=== PATIENT | male | born 1950 | race Caucasian/White ===

== ENCOUNTER → 2017-01-15 | Outpatient (CLI) | payer OTHER ==
[~2017-01-15] MED LIST: AMBIEN 10MG10 MG PO; AMLODIPINE5 MG PO; ASPIRIN 32325 MG/TAB PO; CELEBREX 200MG200 MG PO; DARVOCET N; EPA FISH OIL1000 MG PO; FERROUS SU325 MG/TAB PO; FOLIC ACID; HYGROTON25 MG PO; KLOR-CON M2020 MEQ PO; NORVASC 5MG5 MG/TAB PO; PRILOTC PO; SYNTHROID0.137 MG PO; TAPAZOLE; THALITONE PO; TOPROL XL100 MG PO; TRAMADOL; VITAMIN C250250 MG PO; VITAMIN C500 MG PO
== END ==
LOC: COL.RAD 14:00
DX: M50.30 Other cervical disc degeneration, unspecified cervical region (principal); R59.0 Localized enlarged lymph nodes

== ENCOUNTER → 2018-05-27 | Outpatient (CLI) | payer MEDICARE, BC | LOC: COL.VAS 12:30 | DX: I48.91 Unspecified atrial fibrillation (principal) ==

== ENCOUNTER 2018-06-21 20:57 | Emergency (ER) | payer MEDICARE, BC ==
[~2018-06-21] VITALS: Ht 167.6 cm; Wt 104.5 kg
[2018-06-21 20:59] VITALS: BP 152/82; TEMP 98.5
[2018-06-21 22:51] LABS: INR 1.3 (0.8-3.0); PROTHROMBIN TIME 14.9 SECONDS (9.7-12.8)
[2018-06-21 22:56] LABS: MEAN CELL VOLUME 90 fl (80.0-100.0); MEAN CORPUSCULAR HEMOGLOBIN 31 pg (27.0-31.0); MEAN CORPUSCULAR HGB CONC 35 g/dl (33.0-37.0); MEAN PLATELET VOLUME 10.5 fl (7.4-10.4); PLATELET COUNT 145 K/mm3 (130-400); RED BLOOD COUNT 4.47 M/mm3 (4.20-5.60); REDCELL DISTRIBUTION WIDTH-CV 13.2 % (11.5-14.5)
[2018-06-21 22:57] LABS: CALCIUM 9.1 mg/dL (8.4-10.2); CREATININE, serum 0.72 mg/dL (0.66-1.25); POTASSIUM 3.7 mmol/L (3.4-5.0)
[2018-06-21 23:18] LABS: COLLECTION METHOD CLEAN CATCH
[2018-06-21 23:25] LABS: MUCOUS Present /lpf; PH 5 (5-8); SQUAMOUS EPITHELIAL None Seen /hpf; URINE APPEARANCE Clear; URINE BACTERIA None Seen /hpf; URINE BILIRUBIN Negative (NEGATIVE); URINE BLOOD Negative (NEGATIVE); URINE COLOR Yellow; URINE GLUCOSE Negative (NEGATIVE); URINE KETONE Negative (NEGATIVE); URINE LEUKOCYTE ESTERASE Negative (NEGATIVE); URINE NITRATE Negative (NEGATIVE); URINE PROTEIN(semi-quant) Negative (NEGATIVE); URINE RBC 0-2 /hpf
[2018-06-21 23:37] LABS: BAND 6 % (0-10); EOSINOPHIL 3 % (0-4); LYMPHOCYTE 65 % (20.0-51.0); NEUTROPHILS 24 % (42.0-75.2); PLATELET ESTIMATE NORMAL (NORMAL); TEAR DROP CELLS 1+
[2018-06-21 23:54] VITALS: PULSE 70
== END 2018-06-21 23:54 | disposition home or self-care (01) ==
LOC: COL.ER 20:57
PROVIDERS: Emergency Medicine
DX: R10.30 Lower abdominal pain, unspecified (principal); Z79.82 Long term (current) use of aspirin

== ENCOUNTER 2018-06-24 14:57 | Inpatient (IN) | payer MEDICARE, BC ==
[~2018-06-24] VITALS: Ht 167.6 cm; Wt 104.0 kg
[~2018-06-24 14:57] MED LIST changes: +HYGROTON 2525 MG/TAB PO; -HYGROTON25 MG PO
[2018-07-07] MEDS ORDERED: LIPITOR 10MG10 MG PO (09:40)
[2018-07-07] MEDS ORDERED: GLUCOPHAGE XR500 M1 PO (09:41)
[2018-07-07] MEDS ORDERED: LYRICA200 MG PO (09:44)
[2018-07-07] MEDS ORDERED: MASON NATURAL2000 IU PO (09:50)
[2018-07-07] MEDS ORDERED: SYNTHROID0.125 MG/T PO (09:51)
[2018-07-07] MEDS ORDERED: ASPIRIN 81M81 MG/TA2 PO (09:52)
[2018-07-07] MEDS ORDERED: FOLIC ACID0.8 MG PO (09:52)
[2018-07-07] MEDS ORDERED: VITAMIN C500 MG PO (09:53)
[2018-07-07] MEDS ORDERED: FERROUS SU325 MG/TAB PO (09:53)
[2018-07-07] MEDS ORDERED: B-121000 MCG PO (09:54)
[2018-07-07] MEDS ORDERED: ELIQUIS 5MG PO (09:55)
[2018-07-07] MEDS ORDERED: TOPROL XL 25MG25 MG PO (09:55)
[2018-07-07] MEDS ORDERED: FLOMAX 0.40.4 MG/CAP PO (09:56)
[2018-07-07] MEDS ORDERED: TAMBOCOR 1100 MG/TAB PO (11:50)
[2018-08-05] VITALS (12 sets, daily range): BP systolic 102–134; BP diastolic 57–78; PULSE 58–96; TEMP 97.2–98
[2018-08-05] MEDS ORDERED: ALBUTEROL0.83 MG/ML IH (01:31)
--- NOTE | 2018-08-05 06:51 | NUR ---
Patient admitted to the unit at 0515 this morning. 20G started in right forearm after 2 unsuccessful attempts in left extremity. Pulses and correct joint marked. Site cleansed. Consent signed and on the chart.
--- NOTE | 2018-08-05 09:49 | NUR ---
Initial visit attempt; Patient in surgery, [facility] spoke with his , letting her know of the availability of spiritual care and Chapel's here at [facility].
--- NOTE | 2018-08-05 10:32 | NUR ---
PT TO ROOM 327 PER BED WITH REPORT FROM TAMEKA MAESHIP'S CAPTAIN. PT IS DROWSEY AND AROUSABLE. LUNGS CLEAR BOWELS SOUNDS HYPO. PEDAL PULSES PALPABLE, DRESSING TO RIGHT KNEE CDI WITH AQUACEL OVER INCISION. POLAR KAREN ON SURGICAL SITE RUNNING WITH ICE H20 RUNNING, PT DENIES PAIN. HAS SENSATION TO TOES PARTIALLLY. AT BEDSIDE.
--- NOTE | 2018-08-05 10:54 | NUR ---
PT C/O BURNING TO RIGHT KNEE PO NORCO STARTED PER ORDERS. PT C/O MILD ITCHING. REPOSITIONED FOR COMFORT.
[2018-08-05 14:30] LABS: BASO # 0.1 (0.0-0.2); BASO % 0.3 % (0.0-2.0); EOS # 0.2 (0.0-0.7); GRAN # 10.1 (1.4-6.5); GRAN % 49.8 % (42.2-75.2); HEMATOCRIT 43.6 % (42.0-52.0); HEMOGLOBIN 15.2 g/dl (13.5-18.0); LYMPH # 8.7 (1.2-3.4); LYMPH % 42.8 % (20.0-51.0); MEAN CELL VOLUME 91 fl (80.0-100.0); MEAN CORPUSCULAR HEMOGLOBIN 32 pg (27.0-31.0); MEAN CORPUSCULAR HGB CONC 35 g/dl (33.0-37.0); MEAN PLATELET VOLUME 11.9 fl (7.4-10.4); MONO # 1.1 (0.1-0.6); MONO % 5.4 % (1.7-9.3); PLATELET COUNT 129 K/mm3 (130-400); RED BLOOD COUNT 4.78 M/mm3 (4.20-5.60); REDCELL DISTRIBUTION WIDTH-CV 13.2 % (11.5-14.5)
--- NOTE | 2018-08-05 14:49 | NUR ---
SW met with patient to discuss discharge planning. Patient lives independently at home with his . Patient's PCP is Dr Montemayor and [facility]. Patient has a four wheeled walker for ambulation but no other DME is reported and patient does not use any home health services. Patient plans to receive outpatient PT at [facility] when he is discharged. PAMELA does not anticipate any discharge needs.
[2018-08-05 14:56] LABS: CALCIUM 8.5 mg/dL (8.4-10.2); CREATININE, serum 0.67 (0.66-1.25)
--- NOTE | 2018-08-05 20:00 | NUR ---
REPORT RECEIVED. ASSUMED CARE FOR ROAD MANAGER. ASSESSMENT COMPLETE. VS STABLE. DENIES NEEDS FOR PAIN MEDICATIONS RATING 3/10. RIGHT KNEE ELEVATED WITH CRYOCUFF. AQUACELL DRESSING C/D/I. DENIES NEEDS AT THIS TIME. CALL LIGHT WITHIN REACH. BED IN LOW POSITION WHEELS LCOKED.
[2018-08-06] VITALS (8 sets, daily range): BP systolic 113–145; BP diastolic 45–87; PULSE 64–86; TEMP 97.5–99.2
[2018-08-06] MEDS ORDERED: NORCO 325 MG-7.1 TAB PO (07:44)
[2018-08-06] MEDS ORDERED: ROXICODONE 55 MG/TAB PO (07:44)
[2018-08-06 08:51] LABS: HEMOGLOBIN 13.9 g/dl (13.5-18.0); MEAN CELL VOLUME 93 fl (80.0-100.0); MEAN CORPUSCULAR HEMOGLOBIN 32 pg (27.0-31.0); MEAN CORPUSCULAR HGB CONC 34 g/dl (33.0-37.0); MEAN PLATELET VOLUME 11.3 fl (7.4-10.4); PLATELET COUNT 139 K/mm3 (130-400); RED BLOOD COUNT 4.41 M/mm3 (4.20-5.60); REDCELL DISTRIBUTION WIDTH-CV 13.3 % (11.5-14.5)
[2018-08-06 09:22] LABS: BAND 3 % (0-10); BASOPHIL 1 % (0-2); EOSINOPHIL 3 % (0-4); LYMPHOCYTE 40 % (20.0-51.0); NEUTROPHILS 46 % (42.0-75.2); PLATELET ESTIMATE NORMAL (NORMAL)
--- NOTE | 2018-08-06 20:30 | NUR ---
Patient report received from CARMELITA Paredes at bedside during shift report. Upon assessment at this time patient reports his pain at 8/10 to right knee. PRN [facility] given at this time. Denies N/V. Assisted patient in repositioning in bed. Educated patient on placement of pillows under leg and the importance of not placing pillows under the knee. Cryocuff in place, refilled chamber with ice. No other needs reported/observed.
[2018-08-07 00:33] VITALS: BP 148/66; PULSE 75; TEMP 98.2
[2018-08-07 03:42] VITALS: BP 153/77; PULSE 79; TEMP 98.2
--- NOTE | 2018-08-07 06:35 | NUR ---
awake resting in bed, bedside shift report received from CARMELITA Sheppard
--- NOTE | 2018-08-07 07:03 | NUR ---
Patient report given to CARMELITA Gonzalez at bedside. Patient resting comfortably in bed, no needs reported.
--- NOTE | 2018-08-07 07:04 | NUR ---
Patient report given to CARMELITA Ramirez at bedside. Patient went down for KUB this am, back to room. No needs reported.
[2018-08-07 07:25] VITALS: BP 126/69; PULSE 79; TEMP 99
--- NOTE | 2018-08-07 07:50 | NUR ---
had breakfast and tolerated well, full assessment completed, see interventions for further info, denies needs
--- NOTE | 2018-08-07 09:35 | NUR ---
ambulated out to mayo with physical therapy for group exercises
--- NOTE | 2018-08-07 10:02 | NUR ---
ambulated back to room after therapy and resting in chair
--- NOTE | 2018-08-07 10:32 | NUR ---
occupational therapy in to assit patient with taking a shower
--- NOTE | 2018-08-07 11:00 | NUR ---
out of shower and in recliner getting dressed, c/o some nausea but INT discontinued, will try 7-up and if nausea continues will notify the Dr. for po prn nausea med, patient verbalizes understanding of this, aquacel dressing to right knee removed, incision with syd intact, cleaned with betadine swabs and new aquacel placed
--- NOTE | 2018-08-07 12:00 | NUR ---
in chair and appears to be sleeping, lights off, eyes closed, resp quiet and easy
[2018-08-07 12:03] VITALS: BP 152/81; PULSE 83; TEMP 98.2
--- NOTE | 2018-08-07 12:30 | NUR ---
entered room and patient up to bathroom independently but had been incontinent on the way to bathroom, WARP SCOURING VAT TENDER in and assisting patient with cleaning up
--- NOTE | 2018-08-07 12:41 | NUR ---
again having nausea with some dry heaves, Dr Jaramillo notified
--- NOTE | 2018-08-07 13:00 | NUR ---
assisted out of bathroom and into recliner, medicated with zofran 4mg ODT and hydrocodone 7.5mg 2 tabs for c/os pain 09/07, will wait until after therapy and will consider eating lunch then
--- NOTE | 2018-08-07 13:16 | NUR ---
ambulating in mayo with physical therapy
--- NOTE | 2018-08-07 13:20 | NUR ---
called to room and he had a small amount liquid emesis after ambulating in the mayo, after finishes exercises with therapist encouraged to rest in recliner
--- NOTE | 2018-08-07 14:00 | NUR ---
in recliner and appears to doze and go to sleep quickly, awakens easily, explained to that with narcotics and out of the routine this is normal, she has ordered his lunch
--- NOTE | 2018-08-07 14:30 | NUR ---
remains very sleepy and stomach is still mildly upset but he wants to go home to sleep, is in agreement with this, discharge instructions given to patient and his , verbalizes understanding
--- NOTE | 2018-08-07 14:48 | NUR ---
discharged per WC
--- NOTE | 2018-08-07 14:50 | NUR ---
DISCHARGED PER wc
== END 2018-08-07 14:50 | disposition home or self-care (01) | DRG 470 ==
LOC: JCC 07-28 07:30
PROVIDERS: Hospitalist; ADMIT Orthopaedic Surgery
PROC: 0SRC0J9 Replacement of Right Knee Joint with Synthetic Substitute, Cemented, Open Approach (ICD-10-PCS; principal; 2018-08-05 07:30)
DX: M17.11 Unilateral primary osteoarthritis, right knee (principal); C91.10 Chronic lymphocytic leukemia of B-cell type not having achieved remission; I48.91 Unspecified atrial fibrillation; E11.9 Type 2 diabetes mellitus without complications; I10 Essential (primary) hypertension; E03.9 Hypothyroidism, unspecified; Z79.01 Long term (current) use of anticoagulants; E78.5 Hyperlipidemia, unspecified; K21.9 Gastro-esophageal reflux disease without esophagitis; E66.01 Morbid (severe) obesity due to excess calories; Z68.39 Body mass index [BMI] 39.0-39.9, adult
CPT/HCPCS: 99222; 99231-AI; 99232-AI; A4314; A9284; C1776; J0690; J2250; J2405; J2704; J3010; J7030; J7042; J7120

== ENCOUNTER → 2018-11-10 | Outpatient (CLI) | payer MEDICARE, BC ==
[~2018-11-10] MED LIST changes: +ALBUTEROL0.83 MG/ML IH; +ASPIRIN 81M81 MG/TA2 PO; +B-121000 MCG PO; +ELIQUIS 5MG PO; +FLOMAX 0.40.4 MG/CAP PO; +FOLIC ACID0.8 MG PO; +GLUCOPHAGE XR500 M1 PO; +LIPITOR 10MG10 MG PO; +LYRICA200 MG PO; +MASON NATURAL2000 IU PO; +NORCO 325 MG-7.1 TAB PO; +ROXICODONE 55 MG/TAB PO; +SYNTHROID0.125 MG/T PO; +TAMBOCOR 1100 MG/TAB PO; +TOPROL XL 25MG25 MG PO
== END ==
LOC: COL.VAS 08:39
DX: Z13.89 Encounter for screening for other disorder (principal); R60.0 Localized edema

== ENCOUNTER → 2019-01-07 | Outpatient (CLI) | payer MEDICARE, BC | LOC: COL.RAD 11:02 | DX: M47.812 Spondylosis without myelopathy or radiculopathy, cervical region (principal); Z98.890 Other specified postprocedural states ==

== ENCOUNTER 2020-06-16 17:06 | Inpatient (IN) | payer MEDICARE, BC ==
[~2020-06-16] VITALS: Ht 170.2 cm; Wt 104.1 kg
[2020-06-16] MEDS ORDERED: ZESTRIL 5MG5 MG PO (17:30)
[2020-06-16] MEDS ORDERED: COUMADIN 1MG1 MG/TAB PO (17:30)
[2020-06-16 18:03] LABS: HEMATOCRIT 43.8 % (42.0-52.0); HEMOGLOBIN 14.8 g/dl (13.5-18.0); MEAN CELL VOLUME 91 fl (80.0-100.0); MEAN CORPUSCULAR HEMOGLOBIN 31 pg (27.0-31.0); MEAN CORPUSCULAR HGB CONC 34 g/dl (33.0-37.0); MEAN PLATELET VOLUME 13.1 fl (7.4-10.4); PLATELET COUNT 95 K/mm3 (130-400); RED BLOOD COUNT 4.84 M/mm3 (4.20-5.60); REDCELL DISTRIBUTION WIDTH-CV 13.4 % (11.5-14.5)
[2020-06-16 18:08] LABS: ALBUMIN 4.2 gm/dL (3.5-5.0); BILIRUBIN,TOTAL 0.5 mg/dL (0.0-1.0); CREATININE, serum 0.84 (0.66-1.25); INR 2.8 (0.8-3.0); POTASSIUM 4.3 mmol/L (3.4-5.0); TOTAL PROTEIN 7.5 gm/dL (6.4-8.2)
[2020-06-16 18:29] LABS: COLLECTION METHOD CLEAN CATCH
[2020-06-16 18:34] LABS: BAND 2 % (0-10); EOSINOPHIL 4 % (0-4); LYMPHOCYTE 49 % (20.0-51.0); NEUTROPHILS 40 % (42.0-75.2); PLATELET ESTIMATE DECREASED (NORMAL)
[2020-06-16 18:39] LABS: PH 5 (5-8); SQUAMOUS EPITHELIAL None Seen /hpf; URINE APPEARANCE Clear; URINE BACTERIA None Seen /hpf; URINE BILIRUBIN Negative (NEGATIVE); URINE BLOOD Negative (NEGATIVE); URINE COLOR Yellow; URINE GLUCOSE Negative (NEGATIVE); URINE KETONE Negative (NEGATIVE); URINE LEUKOCYTE ESTERASE Negative (NEGATIVE); URINE NITRATE Negative (NEGATIVE); URINE PROTEIN(semi-quant) Negative (NEGATIVE); URINE RBC 0-2 /hpf; URINE UROBILINOGEN Negative (NEGATIVE)
--- NOTE | 2020-06-16 23:45 | NUR ---
ARRIVES PER CART FROM ED.
--- NOTE | 2020-06-16 23:50 | NUR ---
PT REPORTS BLOODY STOOL, NO CLOTS. CONNECTED TO IVF, RT AC SITE, INFUSING WITHOUT PROBLEM. DENIES PAIN, NO N/V. ORIENTED TO BED AND CONTROLS. ADMISSION QUESTIONS COMPLETED.
[2020-06-17] VITALS: BP 165/69; PULSE 77; TEMP 97.4
[2020-06-17] MEDS ORDERED: AMBIEN 5MG TABLE5 MG PO (00:15)
[2020-06-17 04:34] VITALS: BP 135/65; PULSE 54; TEMP 98.1
--- NOTE | 2020-06-17 05:23 | NUR ---
HAS HAD NO STOOLS SINCE BEFORE MIDNIGHT. VOIDS PER URINAL. NO COMPLAINTS OFFERED.
[2020-06-17 05:58] LABS: HEMATOCRIT 38.9 % (42.0-52.0); MEAN CELL VOLUME 92 fl (80.0-100.0); MEAN CORPUSCULAR HEMOGLOBIN 31 pg (27.0-31.0); MEAN CORPUSCULAR HGB CONC 33 g/dl (33.0-37.0); MEAN PLATELET VOLUME 11.7 fl (7.4-10.4); PLATELET COUNT 93 K/mm3 (130-400); RED BLOOD COUNT 4.23 M/mm3 (4.20-5.60); REDCELL DISTRIBUTION WIDTH-CV 13.7 % (11.5-14.5)
[2020-06-17 06:06] LABS: ALBUMIN 3.3 gm/dL (3.5-5.0); CALCIUM 8.1 mg/dL (8.4-10.2); CREATININE, serum 0.72 (0.66-1.25); POTASSIUM 3.9 mmol/L (3.4-5.0); TOTAL PROTEIN 5.9 gm/dL (6.4-8.2)
[2020-06-17 06:50] LABS: BAND 4 % (0-10); EOSINOPHIL 1 % (0-4); LYMPHOCYTE 61 % (20.0-51.0); NEUTROPHILS 30 % (42.0-75.2)
[2020-06-17 06:51] LABS: PLATELET ESTIMATE DECREASED (NORMAL)
[2020-06-17 06:53] LABS: PROTHROMBIN TIME 22.3 SECONDS (9.7-12.8)
--- NOTE | 2020-06-17 07:07 | NUR ---
Pt doing well, assisted pt to the restroom. No other needs, will continue to monitor
[2020-06-17 07:30] VITALS: BP 128/73; PULSE 65; TEMP 98
--- NOTE | 2020-06-17 10:11 | NUR ---
Pt doing well at this time. Dr Madsen has been in to see patient, new orders wrote. Pt is aware of the procedure for tomorrow. Informed him that he will start the bowel prep closer to this evening. He stated that he is aware of how it works as he has had colonoscopies in the past. Pt is steady on his feet, has no complaints of pain. Will continue to monitor
[2020-06-17 12:09] VITALS: BP 122/68; PULSE 62; TEMP 98.1
--- NOTE | 2020-06-17 15:00 | NUR ---
Pt continues to do well, no complaints or needs. He has not had another bowel movement until this am. Call light within reach, will continue to monitor.
--- NOTE | 2020-06-17 15:36 | NUR ---
Plan is retrun home with Kathia as care support . Patient reports that he has a son Cornelius but unsure of cell number. Patient denies having any DME use, Skilled services, or need for HHS. Patient obtains medications at [facility] and PCP is Dr. Perez and [facility] Dr. Nazario. Will have family to transport home. Does not ahve a POA and will discuss with . No additional concerns at this time. Educated on services. NF/
[2020-06-17 17:42] VITALS: BP 141/77; PULSE 63; TEMP 97.8
--- NOTE | 2020-06-17 17:54 | NUR ---
Pt has started his bowel prep for tomorrow colonoscopy. He still has not had a bowel movement since earlier this am. No complaints, call light within reach, will continue to monitor
[2020-06-17 18:56] VITALS: BP 154/85; PULSE 53; TEMP 97.7
--- NOTE | 2020-06-17 19:16 | NUR ---
Awake, alert, oriented x 4, clearly communicates, denies pain, currently tolerating clear liquid diet, doing bowel prep, telemetry in use Afib 60s, no s/s of hypo/hyper glycemia, holding coumadin inr 2.0, updated on plan of care- verbalized understanding.
[2020-06-18] VITALS (9 sets, daily range): BP systolic 124–161; BP diastolic 68–81; PULSE 57–73; TEMP 97.7–98.2
[2020-06-18 06:32] LABS: CALCIUM 8.1 mg/dL (8.4-10.2); CREATININE, serum 0.71 (0.66-1.25); MAGNESIUM 1.9 mg/dL (1.6-2.3); POTASSIUM 3.7 mmol/L (3.4-5.0)
--- NOTE | 2020-06-18 06:45 | NUR ---
Lying in bed with eyes open. Alert and oriented x4. Denies pain at this time. Patient did bowel prep last night for EGD/Colonoscopy today and he says that his stools are clearing up. Explain to the patient that I was informed they have him on the schedule for this procedure around 1000 today. Patient verbalizes understanding and denies additional needs at this time.
[2020-06-18 07:19] LABS: INR 1.3 (0.8-3.0); PROTHROMBIN TIME 14.5 SECONDS (9.7-12.8)
[2020-06-18 08:32] LABS: HEMATOCRIT 38.3 % (42.0-52.0); HEMOGLOBIN 12.8 g/dl (13.5-18.0); MEAN CELL VOLUME 93 fl (80.0-100.0); MEAN CORPUSCULAR HEMOGLOBIN 31 pg (27.0-31.0); MEAN CORPUSCULAR HGB CONC 33 g/dl (33.0-37.0); RED BLOOD COUNT 4.13 M/mm3 (4.20-5.60); REDCELL DISTRIBUTION WIDTH-CV 13.7 % (11.5-14.5)
[2020-06-18 08:37] LABS: MEAN PLATELET VOLUME 11.9 fl (7.4-10.4)
[2020-06-18 08:46] LABS: PLATELET COUNT 147 K/mm3 (130-400)
[2020-06-18 08:55] LABS: BAND 2 % (0-10); EOSINOPHIL 5 % (0-4); LYMPHOCYTE 61 % (20.0-51.0); NEUTROPHILS 27 % (42.0-75.2); PLATELET ESTIMATE NORMAL (NORMAL)
--- NOTE | 2020-06-18 09:49 | NUR ---
Graciela here to take patient via bed to procedure.
--- NOTE | 2020-06-18 10:49 | NUR ---
Patient back to room from PACU via bed. Alert and oriented x4. Denies pain. in room with the patient. Will provide water. Denies additional needs.
[2020-06-18] MEDS ORDERED: TOPROL XL 50MG50 MG PO (12:01)
--- NOTE | 2020-06-18 12:36 | NUR ---
Patient able to eat 100% of general lunch. Denies pain or nausea. Up to bathroom at this time. Voids without difficulty. Patient is ready to go home at this time, is here as well. Explain we will get his paperwork together.
--- NOTE | 2020-06-18 12:51 | NUR ---
Review all discharge instructions with the patient and his . Verbalize understanding and denies questions. Signs discharge paperwork. Assisted out to POV via wheelchair with all belongings.
--- NOTE | 2020-06-18 13:34 | NUR ---
Patient will discharge home today with Kathia. No new needs at this time.
== END 2020-06-18 12:51 | disposition home or self-care (01) | DRG 378 ==
LOC: COL.ER 17:06 → SURG 20:51
PROVIDERS: Internal Medicine; Nurse Practitioner; Physician Assistant; Student in an Organized Health Care Education/Training Program; Surgery; ADMIT Student in an Organized Health Care Education/Training Program
PROC: 0DJD8ZZ Inspection of Lower Intestinal Tract, Via Natural or Artificial Opening Endoscopic (ICD-10-PCS; principal; 2020-06-18 10:00)
PROC: 0DJ08ZZ Inspection of Upper Intestinal Tract, Via Natural or Artificial Opening Endoscopic (ICD-10-PCS; 2020-06-18 10:00)
DX: K92.2 Gastrointestinal hemorrhage, unspecified (principal); C91.10 Chronic lymphocytic leukemia of B-cell type not having achieved remission; E78.5 Hyperlipidemia, unspecified; M19.90 Unspecified osteoarthritis, unspecified site; E11.9 Type 2 diabetes mellitus without complications; I48.91 Unspecified atrial fibrillation; Z96.642 Presence of left artificial hip joint; D69.6 Thrombocytopenia, unspecified; K44.9 Diaphragmatic hernia without obstruction or gangrene; K21.9 Gastro-esophageal reflux disease without esophagitis; E05.00 Thyrotoxicosis with diffuse goiter without thyrotoxic crisis or storm; Z79.02 Long term (current) use of antithrombotics/antiplatelets; Z79.82 Long term (current) use of aspirin
CPT/HCPCS: 99223-AI; 99232-AI; 99239; C9113; J2250; J2704; J3430; J7030; Q9967

== ENCOUNTER → 2021-11-28 | Outpatient (CLI) | payer MEDICARE ==
[~2021-11-28] MED LIST changes: +AMBIEN 5MG TABLE5 MG PO; +COUMADIN 1MG1 MG/TAB PO; +TOPROL XL 50MG50 MG PO; +ZESTRIL 5MG5 MG PO
== END ==
LOC: COL.RAD 10:36
DX: C91.10 Chronic lymphocytic leukemia of B-cell type not having achieved remission (principal); K44.9 Diaphragmatic hernia without obstruction or gangrene
CPT/HCPCS: Q9967

== ENCOUNTER 2022-05-22 15:39 | Inpatient (IN) | payer MEDICARE ==
[~2022-05-22] VITALS: Ht 170.2 cm; Wt 92.1 kg
[2022-05-22 16:48] LABS: ALBUMIN 4.2 gm/dL (3.4-4.8); BILIRUBIN,TOTAL 9.2 mg/dL (0.2-1.2); CALCIUM 9.9 mg/dL (8.4-10.2); CREATININE, serum 0.98 mg/dL (0.72-1.25); POTASSIUM 3.8 mmol/L (3.5-4.5); TOTAL PROTEIN 7.6 gm/dL (6.2-8.1)
[2022-05-22 17:09] LABS: HEMATOCRIT 43.8 % (42.0-52.0); MEAN CELL VOLUME 92 fl (80.0-100.0); MEAN CORPUSCULAR HEMOGLOBIN 32 pg (27-31); MEAN CORPUSCULAR HGB CONC 34 g/dl (33.0-37.0); MEAN PLATELET VOLUME 11.5 fl (7.4-10.4); RED BLOOD COUNT 4.75 M/mm3 (4.20-5.60); REDCELL DISTRIBUTION WIDTH-CV 13.4 % (11.5-14.5)
[2022-05-22 17:13] LABS: PLATELET COUNT 153 K/mm3 (130-400)
[2022-05-22 17:31] LABS: BAND 2 % (0-10); LYMPHOCYTE 48 % (20.0-51.0); NEUTROPHILS 46 % (42.0-75.2); PLATELET ESTIMATE NORMAL (NORMAL)
[2022-05-22 17:32] LABS: INR 1.3 (0.8-3.0); PROTHROMBIN TIME 14.5 SECONDS (9.7-12.8)
[2022-05-22 19:01] LABS: COLLECTION METHOD CLEAN CATCH
[2022-05-22 19:05] LABS: PH 5.5 (5.0-8.5); URINE APPEARANCE Clear (CLEAR/HAZY); URINE BLOOD Negative (NEGATIVE); URINE COLOR OTHER (YELLOW); URINE GLUCOSE Negative (NEGATIVE); URINE KETONE TRACE (NEGATIVE); URINE NITRATE Negative (NEGATIVE); URINE PROTEIN(semi-quant) 1+ (NEGATIVE)
[2022-05-22 19:07] LABS: SQUAMOUS EPITHELIAL 0-2 /hpf (0-10); URINE BACTERIA None Seen /hpf (NONE SEEN); URINE RBC 0-2 /hpf (0-2)
[2022-05-22] MEDS ORDERED: TOPROL XL 25MG25 MG PO (19:23)
[2022-05-22] MEDS ORDERED: ELIQUIS 5MG PO (19:24)
[2022-05-22] MEDS ORDERED: SYNTHROID0.112 MG/T PO (19:25)
[2022-05-22 19:51] VITALS: BP 145/72; PULSE 74; TEMP 98.5
[2022-05-22 23:58] VITALS: BP 153/89; PULSE 73; TEMP 98.7
[2022-05-23 03:49] VITALS: BP 139/69; PULSE 71; TEMP 98.5
[2022-05-23 06:58] LABS: HEMATOCRIT 40.3 % (42.0-52.0); MEAN CELL VOLUME 92 fl (80.0-100.0); MEAN CORPUSCULAR HEMOGLOBIN 32 pg (27-31); MEAN CORPUSCULAR HGB CONC 35 g/dl (33.0-37.0); REDCELL DISTRIBUTION WIDTH-CV 13.4 % (11.5-14.5)
[2022-05-23 07:17] LABS: ALBUMIN 3.3 gm/dL (3.4-4.8); BILIRUBIN,TOTAL 7.9 mg/dL (0.2-1.2); CALCIUM 8.9 mg/dL (8.4-10.2); CREATININE, serum 0.78 mg/dL (0.72-1.25); POTASSIUM 3.4 mmol/L (3.5-4.5); TOTAL PROTEIN 6.1 gm/dL (6.2-8.1)
[2022-05-23 07:33] LABS: BILIRUBIN,DIRECT 4.6 mg/dL (0.0-0.5)
[2022-05-23 08:05] LABS: PLATELET COUNT 107 K/mm3 (130-400)
[2022-05-23 08:06] VITALS: BP 155/84; PULSE 67; TEMP 99.2
--- NOTE | 2022-05-23 08:08 | NUR ---
Critical lab on WBC received and notified to Provider, Dr. Fang.
[2022-05-23 08:23] LABS: BAND 5 % (0-10); NEUTROPHILS 65 % (42.0-75.2)
[2022-05-23 08:29] LABS: LYMPHOCYTE 23 % (20.0-51.0); PLATELET ESTIMATE DECREASED (NORMAL)
[2022-05-23 11:13] VITALS: BP 155/67; PULSE 73; TEMP 97.7
--- NOTE | 2022-05-23 12:13 | NUR ---
Initial visit; introduced herself to patient who was friendly and thanked for stopping by. He and spoke of his former Physician who was a long time acquaintance of 's and is now retired. mentioned he would keep David in her prayers which pleased him.
--- NOTE | 2022-05-23 13:28 | NUR ---
Returns Processor met with patient to discuss discharge planning. Patient lives outside of [place] with his , Kathia (ph#[phone]). Patient sees Verito Tam NP at [place] for primary care. Patient obtains medications from [facility] and does not use any DME. Patient is independent with ADLS and plans to return home at time of discharge. Patient advised he and his are working on establishing DPOA-HC. Discharge Plan: Home
--- NOTE | 2022-05-23 15:22 | NUR ---
Pt off the unit for ERCP procedure.
[2022-05-23 16:09] VITALS: BP 152/74; PULSE 72; TEMP 100.9
--- NOTE | 2022-05-23 19:57 | NUR ---
Pt came back to the unit around 1600 and was A&Ox4. Pt requesting pain medication at this time for epigastric pain scored at 4/10. Provider notified and new orders were placed. RAC peripheral line is CDI. Fluids running at this time. Pt was offered water and some soft food, and pt accepted it. All medications given per emar. at bedside. Belongings and call light within reach.
[2022-05-23 20:02] VITALS: BP 167/81; PULSE 73; TEMP 98.2
[2022-05-23 23:35] VITALS: BP 143/65; PULSE 72; TEMP 98.5
[2022-05-24] VITALS (10 sets, daily range): BP systolic 139–163; BP diastolic 69–84; PULSE 58–80; TEMP 98.2–99.2
[2022-05-24 06:49] LABS: HEMATOCRIT 38.6 % (42.0-52.0); HEMOGLOBIN 12.9 g/dl (13.5-18.0); MEAN CELL VOLUME 94 fl (80.0-100.0); MEAN CORPUSCULAR HEMOGLOBIN 31 pg (27-31); MEAN CORPUSCULAR HGB CONC 33 g/dl (33.0-37.0); MEAN PLATELET VOLUME 12.8 fl (7.4-10.4); RED BLOOD COUNT 4.13 M/mm3 (4.20-5.60); REDCELL DISTRIBUTION WIDTH-CV 13.4 % (11.5-14.5)
[2022-05-24 07:06] LABS: PLATELET COUNT 97 K/mm3 (130-400)
[2022-05-24 07:07] LABS: BILIRUBIN,TOTAL 3.9 mg/dL (0.2-1.2); CALCIUM 8.5 mg/dL (8.4-10.2); CREATININE, serum 0.7 mg/dL (0.72-1.25); POTASSIUM 3.8 mmol/L (3.5-4.5); TOTAL PROTEIN 5.7 gm/dL (6.2-8.1)
[2022-05-24 07:58] LABS: BAND 1 % (0-10); LYMPHOCYTE 35 % (20.0-51.0); NEUTROPHILS 56 % (42.0-75.2); PLATELET ESTIMATE DECREASED (NORMAL)
[2022-05-24 08:07] LABS: PATHOLOGY DIFF REVIEW OK
--- NOTE | 2022-05-24 15:11 | NUR ---
PATIENT TAKEN DOWN TO OR PROCEDURE AT 1511. CONSENTED TO ANESTHESIA SERVICES. ACCOMPANIED BY OR NURSE.
--- NOTE | 2022-05-24 18:45 | NUR ---
PATIENT BACK ON THE FLOOR FROM THE OR. VSS. AXOX4, SLIGHLTY DROWSY. NURSING PCR.JOCELYN GAVE REPORT. PATIENT IS RESTING WITH AT BEDSIDE. THERE ARE 4 INCISION SITES ON THE ABDOMEN. CLEAN DRY AND INTACT GLUED SITES.
[2022-05-25] VITALS: BP 150/71; PULSE 73; TEMP 98.2
--- NOTE | 2022-05-25 01:12 | NUR ---
Pt in post op monitoring. VSS. A&O x4. Shift assessment completed. Abdominal incisions x4 are CDI. Pain scored at 3/10, and refusing anything for nausea at this time. Nausea is reported and pt requested medication. Provider notified and new orders placed. RAC peripheral line is CDI. Fluids running at this time. On O2 at 3.5L per NC. Water offered and accepted. Before leaving his room, pt got encouraged to ambulate next time he needed to use the bathroom, with assistance, and pt verbalized understanding. Call light left within reach.
--- NOTE | 2022-05-25 01:19 | NUR ---
1945: Pt in post op monitoring. VSS. A&O x4. Shift assessment completed at Abdominal incisions x4 are CDI. Pain scored at 3/10, and refusing anything for nausea at this time. Nausea is reported and pt requested medication. Provider notified and new orders placed. RAC peripheral line is CDI. Fluids running at this time. On O2 at 3.5L per NC. Water offered and accepted. Before leaving his room, pt got encouraged to ambulate next time he needed to use the bathroom, with assistance, and pt verbalized understanding. Call light left within reach.
[2022-05-25 03:50] VITALS: BP 155/79; PULSE 70; TEMP 98.5
[2022-05-25 06:18] LABS: HEMATOCRIT 39.2 % (42.0-52.0); HEMOGLOBIN 13.3 g/dl (13.5-18.0); MEAN CELL VOLUME 93 fl (80.0-100.0); MEAN CORPUSCULAR HEMOGLOBIN 31 pg (27-31); MEAN CORPUSCULAR HGB CONC 34 g/dl (33.0-37.0); MEAN PLATELET VOLUME 12.3 fl (7.4-10.4); RED BLOOD COUNT 4.23 M/mm3 (4.20-5.60); REDCELL DISTRIBUTION WIDTH-CV 12.9 % (11.5-14.5)
[2022-05-25 06:42] LABS: ALBUMIN 2.9 gm/dL (3.4-4.8); BILIRUBIN,TOTAL 1.8 mg/dL (0.2-1.2); CALCIUM 8.9 mg/dL (8.4-10.2); CREATININE, serum 0.73 mg/dL (0.72-1.25); POTASSIUM 4.3 mmol/L (3.5-4.5); TOTAL PROTEIN 6.1 gm/dL (6.2-8.1)
[2022-05-25 07:22] VITALS: BP 159/75; PULSE 70; TEMP 98.9
[2022-05-25 07:26] LABS: PLATELET COUNT 88 K/mm3 (130-400)
[2022-05-25 07:35] LABS: BAND 4 % (0-10); LYMPHOCYTE 49 % (20.0-51.0); NEUTROPHILS 45 % (42.0-75.2); PLATELET ESTIMATE DECREASED (NORMAL)
--- NOTE | 2022-05-25 08:31 | NUR ---
Pt A&O x 4 , VSS, denies pain, denies N/V. Up ambulating in room. Reports ambulating in hallway overnight. Lap sites x 4 to abdomen CDI, skin glue intact, TERESA. BSx4, pt reports passing gas, denies BM.
[2022-05-25] MEDS ORDERED: AMOXICILLIN 8751 TAB PO (10:02)
--- NOTE | 2022-05-25 12:00 | NUR ---
Discussed d/c instructions with pt and . Pt cautioned against lifting >15# prior to f/u with sx in 2 weeks. Abdominal lap sites x 4 CDI, TERESA. Pt denies pain. Instructed to call for f/u appts and provider info highlighted on d/c ppw. Both pt and spouse acknowledge understanding of d/c. IV d/c from [facility] complete/intact. Pt ambulated from facility escorted by staff.
== END 2022-05-25 12:05 | disposition home or self-care (01) | DRG 418 ==
LOC: COL.ER 15:39 → MEDICAL 17:29
PROVIDERS: Emergency Medicine; Physician Assistant; Surgery; ADMIT Internal Medicine
PROC: 0FC98ZZ Extirpation of Matter from Common Bile Duct, Via Natural or Artificial Opening Endoscopic (ICD-10-PCS; 2022-05-23)
PROC: BF13YZZ Fluoroscopy of Gallbladder and Bile Ducts using Other Contrast (ICD-10-PCS; 2022-05-23)
PROC: 8E0W4CZ Robotic Assisted Procedure of Trunk Region, Percutaneous Endoscopic Approach (ICD-10-PCS; 2022-05-24)
PROC: 0FT44ZZ Resection of Gallbladder, Percutaneous Endoscopic Approach (ICD-10-PCS; principal; 2022-05-24 15:00)
DX: K85.10 Biliary acute pancreatitis without necrosis or infection (principal); C91.10 Chronic lymphocytic leukemia of B-cell type not having achieved remission; I48.91 Unspecified atrial fibrillation; D69.6 Thrombocytopenia, unspecified; I10 Essential (primary) hypertension; E03.9 Hypothyroidism, unspecified; E05.00 Thyrotoxicosis with diffuse goiter without thyrotoxic crisis or storm; E11.9 Type 2 diabetes mellitus without complications; K21.9 Gastro-esophageal reflux disease without esophagitis; E66.9 Obesity, unspecified; Z68.31 Body mass index [BMI] 31.0-31.9, adult; E78.5 Hyperlipidemia, unspecified; D72.829 Elevated white blood cell count, unspecified; Z79.01 Long term (current) use of anticoagulants; Z79.84 Long term (current) use of oral hypoglycemic drugs; Z96.642 Presence of left artificial hip joint; Z88.2 Allergy status to sulfonamides
CPT/HCPCS: C1769; J0690; J1100; J2270; J2405; J2543; J2550; J2704; J3010; J7120; Q9967

== ENCOUNTER 2023-10-20 10:16 | Day surgery (SDC) | payer MEDICARE ==
[~2023-10-20] VITALS: Ht 167.6 cm; Wt 91.9 kg
[~2023-10-20 10:16] MED LIST changes: +AMOXICILLIN 8751 TAB PO; +LR 1,000 ML IV SCH; +SYNTHROID0.112 MG/T PO
[2023-10-20] MEDS ORDERED: TIROSINT137 MC1 PO (11:24)
[2023-10-20] MEDS ORDERED: NERVIVE PO (11:25)
[2023-10-20] MEDS ORDERED: BENADRYL25 M2 PO (11:26)
[2023-10-20 11:38] VITALS: BP 140/75; PULSE 55; TEMP 97.2
[2023-10-20] MEDS ORDERED: dexAMETHasone 10 MG/ML VIAL ONE (11:57)
[2023-10-20] MEDS ORDERED: Lidocaine PF 2% (20 MG/ML) 5 ML VIAL ONE (11:57)
[2023-10-20] MEDS ORDERED: NS 10 ML IV ONE (11:57)
[2023-10-20] MEDS ORDERED: fentaNYL 50 MCG/ML 2 ML VIAL ONE (11:58)
[2023-10-20] MEDS ORDERED: Midazolam 2 MG/2 ML VIAL ONE (11:58)
[2023-10-20] MEDS ORDERED: hydrALAZINE 20 MG/ML 1 ML VIAL IV PRN (13:15)
[2023-10-20] MEDS ORDERED: Ondansetron 4 MG/2 ML VIAL IV PRN ×2 (13:15→14:00)
[2023-10-20] MEDS ORDERED: HYDROmorphone 1 MG/1 ML SYRINGE [PACU/SDC ONLY] IV PRN (13:15)
[2023-10-20] MEDS ORDERED: NORCO 325 MG-51 TAB PO (13:53)
[2023-10-20 13:55] VITALS: BP 116/57; PULSE 53; TEMP 97
[2023-10-20 14:00] VITALS: BP 119/64; PULSE 51
[2023-10-20 14:15] VITALS: BP 130/64; PULSE 51
[2023-10-20 14:30] VITALS: BP 139/76; PULSE 57
--- NOTE | 2023-10-20 15:54 | NUR ---
1355- PT RETURNS FROM PROCEDURE ROOM VIA CART TO [facility]. MONITORS ON AND ALARMS SET. CALL LIGHT WITHIN REACH. REPORT RECEIVED FROM CARMELITA GRIMM. PT RESPONDS TO VOICES AND TOUCH. WILL LET PT REST. 1400- PT STILL RESTING WITH EYES CLOSED. NO COMPLICATIONS. 1415- PT REQUESTING DRINK. TOLERATED WELL. NO COMPLICATIONS. 1430- PT UP TO BATHROOM WITH ASSIST. TOLERATED WELL. 1530- DISCHARGE INSTRUCTIONS GIVEN TO PT. ALL QUESTIONS ANSWERED. 1535- PT TRANSFERRED OUT OF THE HOSPITAL VIA WHEELCHAIR AND ASSIST TO PRIVATE VEHICLE DRIVEN BY .
== END 2023-10-20 15:35 | disposition home or self-care (01) ==
LOC: SDCO 10:16
DX: K40.90 Unilateral inguinal hernia, without obstruction or gangrene, not specified as recurrent (principal); C91.10 Chronic lymphocytic leukemia of B-cell type not having achieved remission; Z79.01 Long term (current) use of anticoagulants; I48.20 Chronic atrial fibrillation, unspecified; D69.6 Thrombocytopenia, unspecified; K21.9 Gastro-esophageal reflux disease without esophagitis; E11.9 Type 2 diabetes mellitus without complications; E66.9 Obesity, unspecified; Z68.32 Body mass index [BMI] 32.0-32.9, adult; Z79.899 Other long term (current) drug therapy
CPT/HCPCS: C1781; J0690; J1100; J2250; J2704; J2795; J3010; J7120